=== PATIENT | female | born 2000 | race Caucasian/White ===

== ENCOUNTER 2021-09-20 09:47 | Emergency (ER) | payer OTHER, SELFPAY ==
[2021-09-20 10:04] VITALS: BP 95/55; PULSE 85; RESP 16; TEMP 36.8; O2SAT 100
--- NOTE | 2021-09-20 10:40 | ED.FEMALEGU ---
HPI - Female Genitourinary General Chief complaint: Urogenital-Female Stated complaint: vaginal itch Time Seen by Provider: 09/20/21 10:40 Source: patient and family Mode of arrival: ambulatory History of Present Illness HPI Narrative: Patient presents with vaginal itching and vaginal irritation. Patient states she has a history of BV and yeast infection. Patient states she has not been on an antibiotic recently and is unable to get in to her OB manipulative therapy specialist for evaluation. Patient denies any concern for STD please no abdominal pain and no pelvic pain. MD elicited complaint: vaginal discharge and genital itching Related Data Home Medications Medication Instructions Recorded Confirmed erenumab-aooe [Aimovig 140 mg SUBCUT WEEKLY 09/20/21 09/20/21 Autoinjector] norethindrone-e.estradiol-iron 1 tablet PO DAILY 09/20/21 09/20/21 [09/28 (28)] rizatriptan 10 mg PO DAILY 09/20/21 09/20/21 Allergies Allergy/AdvReac Type Severity Reaction Status Date / Time ciprofloxacin [From Cipro] Allergy Hives Verified 09/20/21 10:49 Sulfa (Sulfonamide Allergy Hives Verified 09/20/21 10:49 Antibiotics) Review of Systems Review of Systems: CONSTITUTIONAL: Denies fever, chills, or sweats. EYES: Denies visual changes, redness, or discharge. ENT: Denies rhinorrhea, congestion, sore throat, or otalgia. CARDIOVASCULAR: Denies chest pain, palpitations, or edema. RESPIRATORY: Denies cough or dyspnea. GASTROINTESTINAL: Denies abdominal pain, nausea, vomiting, or diarrhea. GENITOURINARY: Denies dysuria or hematuria. Reports vaginal itching and irritation SKIN: Denies rash or itching. MUSCULOSKELETAL: Denies back pain, joint pain, or myalgia. NEUROLOGIC: Denies headache, numbness, or weakness. PSYCHIATRIC: Denies anxiety or depression. PMFSH Comments At time of signature, agree with nursing past medical, surgical, social and family history. There is no relevant family history pertinent to the presenting complaint Exam Narrative: GENERAL: Well-appearing, well-nourished, and in no acute distress. HEAD: Normocephalic, atraumatic. EYES: PERRLA and EOMI. ENT: Nares clear, no rhinorrhea or epistaxis. Mucous membranes moist. NECK: Supple. CHEST: Clear to auscultation. No respiratory distress. HEART: Regular rate and rhythm. No murmur heard. Normal peripheral pulses. ABDOMEN: Soft, nontender, nondistended, normal active bowel sounds. EXTREMITIES: Normal range of motion. No edema.pelvic exam moderate amount of thick white vaginal discharge . no pelvic pain otherwise normal pelvic exam SKIN: Warm, dry, no rash. NEURO: No focal deficits. Alert and oriented x3. [place]ray Coma Scale Eye Opening: Spontaneous 4 [place] Coma Scale Motor: Obeys Commands 6 [place] Coma Scale Verbal: Oriented 5 [place] Coma Scale Total 15 Back/Spine/Pelvis: Pelvis: no pain with anterior-posterior compression and no pain with lateral compression Course Course Level of Care: Express Care Visit Vital Signs Vital signs: Vital Signs Temperature 36.8 C 09/20/21 10:04 Pulse Rate 85 09/20/21 10:04 Respiratory Rate 16 09/20/21 10:04 Blood Pressure 95/55 L 09/20/21 10:04 Pulse Oximetry 100 09/20/21 10:04 Temperature 36.8 C 09/20/21 10:04 Pulse Rate 85 09/20/21 10:04 Respiratory Rate 16 09/20/21 10:04 Blood Pressure 95/55 L 09/20/21 10:04 Pulse Oximetry 100 09/20/21 10:04 Critical dx considered and discussed with pt. Educated patient on red flag s/s and to go to ED if s/s occur. Discussed with pt when to return to Express Care or primary care provider. Pt gave verbal undertstanding, all questions were answered, and pt was agreeable to plan MDM - Female Genitourinary Differential Diagnosis Differential diagnosis: Likely urinary tract infection, bacterial vaginosis, trichomoniasis, cervicitis, ovarian cyst, vaginitis, ruptured ovarian cyst, cyst of Bartholin's gland, cystitis and dysmenorrhea Critical Care Time Critical C
== END 2021-09-20 10:55 | disposition home or self-care (01) ==
PROVIDERS: Emergency Provider Nurse Practitioner Family
DX: N76.0 Acute vaginitis (principal)
CPT/HCPCS: 87070; 99213; G0463

== ENCOUNTER 2022-02-10 16:15 | Emergency (ER) | payer OTHER, SELFPAY ==
[2022-02-10 16:22] VITALS: BP 131/69; PULSE 94; RESP 16; TEMP 37.1; O2SAT 100
--- NOTE | 2022-02-10 16:51 | ED.FEMALEGU ---
HPI - Female Genitourinary General Chief complaint: Urogenital-Female Stated complaint: cyst on vagina Time Seen by Provider: 02/10/22 16:50 Source: patient and RN notes reviewed Mode of arrival: ambulatory Limitations: no limitations History of Present Illness HPI Narrative: 21-year-old female presents with concern for vaginal cyst . She reports a painful area on her labia. She reports she had a similar area in her buttocks which resolved. She reports these areas appeared after shaving. She reports she is on sure if she could have been exposed to STD. She denies any history of herpes. She denies drainage from the area. She denies intervention. MD elicited complaint: other (Vaginal lesion) Related Data Home Medications Medication Instructions Recorded Confirmed erenumab-aooe 140 mg/mL 140 mg subcut WEEKLY 09/20/21 02/10/22 subcutaneous auto-injector (Aimovig Autoinjector) norethindrone 1 mg-ethinyl 1 tablet PO DAILY 09/20/21 02/10/22 estradiol 20 mcg (21)-iron 75 mg (7) tablet (June09/28 (28)) rizatriptan 10 mg tablet 10 mg PO DAILY 09/20/21 02/10/22 Allergies Allergy/AdvReac Type Severity Reaction Status Date / Time ciprofloxacin [From Cipro] Allergy Hives Verified 02/10/22 16:40 Sulfa (Sulfonamide Allergy Hives Verified 02/10/22 16:40 Antibiotics) Review of Systems Review of Systems: CONSTITUTIONAL: Denies malaise, chills, sweats, or fever. CARDIOVASCULAR: Denies chest pain, palpitations, or edema. RESPIRATORY: Denies cough or dyspnea. GASTROINTESTINAL: Denies abdominal pain, nausea, vomiting, diarrhea GENITOURINARY: Reports dysuria, frequency, urgency, suprapubic pressure. Denies flank pain or hematuria. SKIN: Denies rash or itching. MUSCULOSKELETAL: Denies back pain or myalgia. All systems reviewed & are unremarkable except as noted in HPI and below PMFSH Comments At time of signature, agree with nursing past medical, surgical, social and family history. There is no relevant family history pertinent to the presenting complaint Exam Narrative: GENERAL: Well-appearing, well-nourished, and in no acute distress. HEAD: Normocephalic, atraumatic. EYES: PERRLA, conjunctivae clear ENT: Mucous membranes moist. NECK: Supple. No lymphadenopathy CHEST: Clear to auscultation. No respiratory distress. HEART: Regular rate and rhythm. SKIN: Warm, dry. Erythematous flat papule noted to the left labia, painful to touch. NEURO: Alert and oriented x3. PSYCH: Normal mood and affect : External Female Exam: lesion Speculum Exam - Vagina: normal appearance of the vagina and abnormal vaginal discharge white Speculum Exam - Cervix: normal appearance of the cervix Course Course Emergency Course: Discussed with patient treatment at this time versus treatment for positive results. Patient prefers to wait for positive results, because she tends to not handle antibiotics well. Patient understands she may have to return for an injection. Patient is aware of diagnosis, understands and agrees to treatment plan. Anticipatory guidance given. Patient agrees to follow-up as directed and is aware of reasons to seek care at the emergency department. Portions of this record may have been created with voice recognition software Level of Care: Express Care Visit Vital Signs Vital signs: Vital Signs Temperature 98.8 F 02/10/22 16:22 Pulse Rate 94 02/10/22 16:22 Respiratory Rate 16 02/10/22 16:22 Blood Pressure 131/69 02/10/22 16:22 Pulse Oximetry 100 02/10/22 16:22 Oxygen Delivery Room Air 02/10/22 16:22 Temperature 98.8 F 02/10/22 16:22 Pulse Rate 94 02/10/22 16:22 Respiratory Rate 16 02/10/22 16:22 Blood Pressure 131/69 02/10/22 16:22 Pulse Oximetry 100 02/10/22 16:22 Oxygen Delivery Room Air 02/10/22 16:22 Reviewed. MDM - Female Genitourinary MDM Narrative Medical decision making narrative: Exam findings and UA show no acute concerns or changes; pat
== END 2022-02-10 17:12 | disposition home or self-care (01) ==
PROVIDERS: Emergency Provider Nurse Practitioner
DX: N30.90 Cystitis, unspecified without hematuria (principal)
CPT/HCPCS: 87255; 87491; 87591; 87661; 99214; G0463

== ENCOUNTER 2022-07-05 17:57 | Emergency (ER) | payer OTHER, SELFPAY ==
[2022-07-05 18:04] VITALS: BP 122/70; PULSE 104; RESP 14; TEMP 37; O2SAT 100
--- NOTE | 2022-07-05 18:18 | ED.URI ---
HPI - URI/Sore Throat General Chief Complaint: Upper Respiratory Infection Stated Complaint: sore throat cough Time Seen by Provider: 07/05/22 18:02 Source: patient and RN notes reviewed History of Present Illness HPI Narrative: patient is a 21-year-old female who presents to the Urgent Care with complaints of a sore throat cough for 3 days. Patient denies any fever, nausea, vomiting or shortness of breath. Denies any ill exposures. States that she has been taking Tylenol and ibuprofen. Patient's main concern is going back to work tomorrow where she talks a lot . No other acute complaints. No acute distress noted. Patient aware of the plan care. Some parts of this dictation were generated by voice recognition software and may contain typographical and/or grammatical inaccuracies. Related Data Home Medications Medication Instructions Recorded Confirmed erenumab-aooe 140 mg/mL 140 mg subcut WEEKLY 09/20/21 07/05/22 subcutaneous auto-injector (Aimovig Autoinjector) norethindrone 1 mg-ethinyl 1 tablet PO DAILY 09/20/21 07/05/22 estradiol 20 mcg (21)-iron 75 mg (7) tablet (09/28 (28)) rizatriptan 10 mg tablet 10 mg PO DAILY 09/20/21 07/05/22 Allergies Allergy/AdvReac Type Severity Reaction Status Date / Time ciprofloxacin [From Cipro] Allergy Hives Verified 02/10/22 16:40 Sulfa (Sulfonamide Allergy Hives Verified 02/10/22 16:40 Antibiotics) Review of Systems Review of Systems: CONSTITUTIONAL: Denies fever, chills, or sweats. EYES: Denies visual changes, redness, or discharge. ENT: reports rhinorrhea, postnasal drainage and sore throat CARDIOVASCULAR: Denies chest pain, palpitations, or edema. RESPIRATORY: reports of cough GASTROINTESTINAL: Denies abdominal pain, nausea, vomiting, or diarrhea. GENITOURINARY: Denies dysuria or hematuria. SKIN: Denies rash or itching. MUSCULOSKELETAL: Denies back pain, joint pain, or myalgia. NEUROLOGIC: Denies headache, numbness, or weakness. All other systems reviewed are negative, except as documented in HPI. PMFSH Comments At the time of my signature, I reviewed and agree with the nursing past medical, surgical, social, and family history. There is no relevant family history pertinent to the patient complaint. Exam Narrative: GENERAL: This is a well-nourished, well-developed patient, in no apparent distress. HEAD: normocephalic, atraumatic. frontal sinus tenderness EYES: PERRL. Sclera clear/white. Vision is grossly intact. EARS: External ears normal, auditory canals clear and without drainage, TMs normal without perforation. Hearing grossly intact. NOSE: External nose normal with no obvious nasal discharge, nares without redness, clear rhinorrhea. THROAT: Mucous membranes moist, posterior pharynx clear. moderate postnasal drainage NECK: Neck supple, non-tender without lymphadenopathy CARDIOVASCULAR: Regular rate and rhythm without murmurs, gallops, or rubs. RESPIRATORY: Clear to auscultation. Breath sounds equal bilaterally. No wheezes, rales, or rhonchi. SKIN: warm, intact with no suspicious lesions or rash, good texture and turgor. NEURO: awake, alert, and oriented to person, place and time. There were no obvious focal neurologic abnormalities. EXTREMITIES: No clubbing, cyanosis, or edema. Course Course Level of Care: Express Care Visit Vital Signs Vital signs: Vital Signs Temperature 98.6 F 07/05/22 18:04 Pulse Rate 104 H 07/05/22 18:04 Respiratory Rate 14 07/05/22 18:04 Blood Pressure 122/70 07/05/22 18:04 Pulse Oximetry 100 07/05/22 18:04 Oxygen Delivery Room Air 07/05/22 18:04 Temperature 98.6 F 07/05/22 18:04 Pulse Rate 104 H 07/05/22 18:04 Respiratory Rate 14 07/05/22 18:04 Blood Pressure 122/70 07/05/22 18:04 Pulse Oximetry 100 07/05/22 18:04 Oxygen Delivery Room Air 07/05/22 18:04 reviewed MDM - URI/Sore Throat MDM Narrative Medical decision making narrative: reviewed lab r
== END 2022-07-05 18:36 | disposition home or self-care (01) ==
PROVIDERS: Emergency Provider Nurse Practitioner Family
DX: J02.9 Acute pharyngitis, unspecified (principal)
CPT/HCPCS: 87081; 87880; 99213; G0463

== ENCOUNTER 2022-09-23 11:18 | Emergency (ER) | payer OTHER, SELFPAY ==
[2022-09-23 11:22] VITALS: BP 121/65; PULSE 101; RESP 14; TEMP 37.1; O2SAT 100
[2022-09-23 11:29] VITALS: BP 121/65; PULSE 101; RESP 14; TEMP 37.1; O2SAT 100
--- NOTE | 2022-09-23 11:57 | ED.FEMALEGU ---
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 with complaints of a [id number] to vaginal area which began on the 14 of September, patient reports she talked to [facility] [facility] and has been advised to take Valtrex 100mg BID daily for 10 days with tomorrow last day for that treatment. Patient reports that she has vaginal discharge and itching and also some pain with urination. Patient has tried Monistat one day with no improvement with continued discomfort MD elicited complaint: vaginal discharge and genital itching Onset (ago): day(s) (9 days ) Location of symptoms: external genitalia and vaginal Related Data Home Medications Medication Instructions Recorded Confirmed erenumab-aooe 140 mg/mL 140 mg subcut WEEKLY 09/20/21 07/05/22 subcutaneous auto-injector (Aimovig Autoinjector) norethindrone 1 mg-ethinyl 1 tablet PO DAILY 09/20/21 07/05/22 estradiol 20 mcg (21)-iron 75 mg (7) tablet (09/28 (28)) rizatriptan 10 mg tablet 10 mg PO DAILY 09/20/21 07/05/22 fexofenadine 180 mg tablet mg 09/23/22 spironolactone 100 mg tablet mg 09/23/22 tretinoin 0.05 % topical cream applic topical 09/23/22 valacyclovir 1 gram tablet mg 09/23/22 Allergies Allergy/AdvReac Type Severity Reaction Status Date / Time ciprofloxacin [From Cipro] Allergy Hives Verified 09/23/22 11:26 Sulfa (Sulfonamide Allergy Hives Verified 09/23/22 11:26 Antibiotics) Review of Systems Review of Systems: CONSTITUTIONAL: Denies fever, chills, or sweats. EYES: Denies visual changes, redness, or discharge. ENT: Denies rhinorrhea, congestion, sore throat, or otalgia. CARDIOVASCULAR: Denies chest pain, palpitations, or edema. RESPIRATORY: Denies cough or dyspnea. GASTROINTESTINAL: Denies abdominal pain, nausea, vomiting, or diarrhea. GENITOURINARY: Reports dysuria no hematuria, reports vaginal discharge with itching and vaginal discomfort and itching. SKIN: Denies rash or itching. MUSCULOSKELETAL: Denies back pain, joint pain, or myalgia. NEUROLOGIC: Denies headache, numbness, or weakness. PSYCHIATRIC: positive for history of anxiety or depression. All systems reviewed & are unremarkable except as noted in HPI and below PMFSH Past Medical History Medical History (Updated 09/23/22 @ 20:48 by Dianna Slater NP) Bacterial vaginosis Hx of migraines Vaginal yeast infection Surgical History Surgical History (Updated 09/23/22 @ 20:49 by Dianna Slater NP) History of placement of ear tubes History of tonsillectomy Comments At time of signature, agree with nursing past medical, surgical, social and family history. There is no relevant family history pertinent to the presenting complaint Exam Narrative: GENERAL: Well-appearing, well-nourished, and in no acute distress. HEAD: Normocephalic, atraumatic. EYES: PERRLA and EOMI. ENT: Nares clear, no rhinorrhea or epistaxis. Mucous membranes moist.TM's normal with good light reflex, throat pink with no lesions or exudates. NECK: Supple. no lymphadenopathy CHEST: Clear to auscultation. No respiratory distress.SAO2 100% on room air HEART: Regular rate and rhythm. No murmur heard. Normal peripheral pulses. ABDOMEN: Soft, nontender, nondistended, normal active bowel sounds. no CVA tenderness with vaginal discharge and itching EXTREMITIES: Normal range of motion. No edema. SKIN: Warm, dry, no rash. NEURO: No focal deficits. Alert and oriented x3. : General: Yes bladder normal to palpation and Yes no CVA tenderness External Female Exam: normal external appearance Speculum Exam - Vagina: normal appearance of the vagina and abnormal vaginal discharge Bimanual exam- vagina & uterus: cervical mot
== END 2022-09-23 12:29 | disposition home or self-care (01) ==
PROVIDERS: Emergency Provider Registered Nurse
DX: N76.0 Acute vaginitis (principal); B37.31 Acute candidiasis of vulva and vagina
CPT/HCPCS: 81003; 87070; 99214; G0463